=== PATIENT | female | born 1940 | race Caucasian/White ===

== ENCOUNTER 2021-06-20 18:26 | Emergency (ER) | payer MEDICARE, OTHER ==
[~2021-06-20] VITALS: Ht 157.5 cm; Wt 81.6 kg
--- NOTE | 2021-06-20 19:05 | NUR ---
AT BEDSIDE FOR EVAL.
--- NOTE | 2021-06-20 19:16 | NUR ---
SPOOLER RUBBER STRAND AT BEDSIDE FOR XRAY.
[2021-06-20] MEDS ORDERED: MAG HYDROX/AL HYDROX/SIMETH 30 ML UDC ONE (21:18)
[2021-06-20 21:28] VITALS: BP 122/67
--- NOTE | 2021-06-20 21:28 | NUR ---
Patient discharged to home in stable condition. Written and verbal after care instructions given. Patient verbalizes understanding of instruction.
[2021-06-20] MEDS ORDERED: LIDOCAINE VISCOUS 2% UD 15 ML UDC MM ONE (21:30)
[2021-06-20] MEDS ORDERED: MAG HYDROX/AL HYDROX/SIMETH 30 ML UDC PO ONE (21:30)
== END 2021-06-20 21:29 | disposition home or self-care (01) ==
LOC: ER 18:26
DX: R07.0 Pain in throat (principal); E11.9 Type 2 diabetes mellitus without complications; I10 Essential (primary) hypertension; E78.5 Hyperlipidemia, unspecified; K21.9 Gastro-esophageal reflux disease without esophagitis; Z98.890 Other specified postprocedural states
CPT/HCPCS: 70490-TC